=== PATIENT | male | born 1955 | race Caucasian/White ===

== ENCOUNTER 2021-01-27 07:07 | Inpatient (IN) | payer OTHER ==
[~2021-01-27] VITALS: Ht 170.2 cm; Wt 77.1 kg
[2021-01-27] MEDS ORDERED: DIVALPROEX SOD500 M1 PO ×2 (11:30→11:39)
[2021-01-27] MEDS ORDERED: BUMETANIDE2 MG PO ×2 (11:30→11:33)
[2021-01-27] MEDS ORDERED: LEVOTHYROXINE200 MC1 PO (11:31)
[2021-01-27] MEDS ORDERED: HYDRALAZINE HCL25 MG PO (11:32)
[2021-01-27] MEDS ORDERED: COZAAR50 MG PO (11:32)
[2021-01-27] MEDS ORDERED: CARDURA2 MG PO (11:33)
[2021-01-27] MEDS ORDERED: LIPITOR80 MG PO (11:33)
[2021-01-27] MEDS ORDERED: LOPRESSOR50 MG PO (11:34)
[2021-01-27] MEDS ORDERED: ELIQUIS5 MG PO (11:34)
[2021-01-27] MEDS ORDERED: NOVOLIN R100 UNIT/1 INJ (11:38)
[2021-01-27] MEDS ORDERED: LEVEMIR100 UNIT/1 SQ (11:39)
[2021-01-27 11:44] LABS: HEMOGLOBIN 8.2 gm/dl (14.0-17.5); RED BLOOD COUNT 2.9 M/UL (4.20-5.50); WHITE BLOOD COUNT 9.2 K/UL (4.5-11.0)
[2021-01-28 06:27] LABS: HEMOGLOBIN 8.8 gm/dl (14.0-17.5); RED BLOOD COUNT 3.12 M/UL (4.20-5.50)
[2021-01-29 08:16] LABS: HEMOGLOBIN 7.8 gm/dl (14.0-17.5); WHITE BLOOD COUNT 11.1 K/UL (4.5-11.0)
[2021-01-29 08:23] LABS: RED BLOOD COUNT 2.76 M/UL (4.20-5.50)
[2021-01-29 11:14] LABS: HBSAG SCREEN Negative (Negative); HEP A AB, IGM Negative (Negative); HEP B CORE AB, IGM Negative (Negative); HEP C VIRUS AB <0.1 (0.0-0.9)
--- NOTE | 2021-01-29 13:30 | NUR ---
PT DC'D WITH 2LNC IN PLACE INSTRUCTED PT AND BROTHER THAT THE PT HAD TO WEAR IT ALL TIMES. BOTH PT AND BROTHER VERBALIZED UNDERSTANDING. HOME O2 SET UP
== END 2021-01-29 13:30 | disposition home or self-care (01) | DRG 291 ==
LOC: PROG CARE 09:50
PROVIDERS: Internal Medicine; Physician Assistant; ADMIT Internal Medicine
PROC: B24BZZ4 Ultrasonography of Heart with Aorta, Transesophageal (ICD-10-PCS; 2021-01-27)
PROC: 3E1M39Z Irrigation of Peritoneal Cavity using Dialysate, Percutaneous Approach (ICD-10-PCS; principal; 2021-01-28)
DX: I13.2 Hypertensive heart and chronic kidney disease with heart failure and with stage 5 chronic kidney disease, or end stage renal disease (principal); I50.23 Acute on chronic systolic (congestive) heart failure; N18.6 End stage renal disease; Z66 Do not resuscitate; Z20.822 Contact with and (suspected) exposure to COVID-19; I16.0 Hypertensive urgency; D63.1 Anemia in chronic kidney disease; I27.20 Pulmonary hypertension, unspecified; I07.1 Rheumatic tricuspid insufficiency; D72.829 Elevated white blood cell count, unspecified; E03.9 Hypothyroidism, unspecified; E11.649 Type 2 diabetes mellitus with hypoglycemia without coma; E11.21 Type 2 diabetes mellitus with diabetic nephropathy; I48.91 Unspecified atrial fibrillation; E78.5 Hyperlipidemia, unspecified; I48.0 Paroxysmal atrial fibrillation; G40.909 Epilepsy, unspecified, not intractable, without status epilepticus; I25.10 Atherosclerotic heart disease of native coronary artery without angina pectoris; E11.22 Type 2 diabetes mellitus with diabetic chronic kidney disease; Z99.2 Dependence on renal dialysis; Z95.1 Presence of aortocoronary bypass graft; Z79.01 Long term (current) use of anticoagulants; Z79.4 Long term (current) use of insulin; Z83.3 Family history of diabetes mellitus; Z80.9 Family history of malignant neoplasm, unspecified; Z86.73 Personal history of transient ischemic attack (TIA), and cerebral infarction without residual deficits
CPT/HCPCS: ECHO; 36415; 71045; 74018; 80048; 80053; 80074; 82550; 82553; 82728; 82962; 83036; 83540; 83550; 83605; 83690; 83735; 84484; 85025; 87040; 90947; 93005; 93306; J0360; J2270; J2405